=== PATIENT | female | born 1965 | race Caucasian/White ===

== ENCOUNTER 2017-05-28 06:54 | Day surgery (SDC) | payer MEDICAID ==
[2017-05-19 12:25] LABS: Basophils # (auto) 0.1 uL; Basophils % (auto) 0.8 % (0.0-2.0); Eosinophils # (auto) 0.2 uL; Eosinophils % (auto) 2.2 % (0.0-7.0); Hematocrit 44.5 % (36.0-46.0); Hemoglobin 15.1 g/dL (12.2-16.2); Lymphocytes # (auto) 2.8 uL; Lymphocytes % (auto) 27.3 % (10.0-50.0); Mean Corpuscular Hemoglobin 32.3 pg (28.0-32.0); Mean Corpuscular Hgb Conc. 33.8 g/dL (32.0-36.0); Mean Corpuscular Volume 95.4 fL (80.0-100.0); Monocytes # (auto) 0.6 uL; Monocytes % (auto) 6.2 % (0.0-12.0); Neutrophils # (auto) 6.6 uL; Neutrophils % (auto) 63.5 % (37.0-80.0); Nucleated Red Blood Cells % 0.1 %; Platelet Count (auto) 409 10^3/uL (140-450); Red Blood Cells 4.67 10^6/uL (4.0-5.20); Red Cell Distribution Width 13.1 % (11.8-14.3); White Blood Cell 10.4 10^3/uL (4.4-10.8)
[2017-05-19 12:41] LABS: Urine Bacteria NONE SEEN /hpf (None Seen); Urine Blood Negative /uL (Negative); Urine Mucus FEW (None Seen); Urine Specific Gravity 1.006 (1.001-1.035); Urine WBC 1 /hpf (0 - 5)
[2017-05-19 12:47] LABS: INR 0.88 (0.9-1.15); Prothrombin Time 9.6 sec (9.37-12.3)
[2017-05-19 14:17] LABS: Albumin 4.3 g/dL (3.4-5.0); BUN/Creatinine Ratio 14.5; Bilirubin, Total 0.3 mg/dL (0.2-1.0); Calcium 9.9 mg/dL (8.5-10.1); Potassium 4.1 mmol/L (3.5-5.1); Total Protein 8.2 g/dL (6.4-8.2)
[~2017-05-28] VITALS: Ht 162.6 cm; Wt 59.0 kg
[~2017-05-28 06:54] MED LIST: ALBUAER3 IN; BECL40AE10 IN; CYCL1TAB18 PO; GABA100C PO; HYDR-531 PO; TRIA37.561 PO; VEN75XRT PO
[2017-05-28] MEDS ORDERED: ceFAZolin 1GM/50ML 50 ML IV ONE (08:49)
[2017-05-28] MEDS ORDERED: fentaNYL CITRATE 100 MCG/2 ML VL ONE (10:16)
[2017-05-28] MEDS ORDERED: MIDAZOLAM HCL 1MG/1ML-2 ML VIAL ONE (10:17)
[2017-05-28] MEDS ORDERED: PROPOFOL 10 MG/ML 20 ML IV ONE (10:17)
[2017-05-28] MEDS ORDERED: ONDANSETRON HCL 4 MG/2 ML VIAL IV ONE (11:00)
[2017-05-28] MEDS ORDERED: ePHEDrine SULFATE 50 MG/ML AMP IV PRN (11:00)
[2017-05-28] MEDS ORDERED: fentaNYL CITRATE 100 MCG/2 ML VL IV ONE (11:00)
[2017-05-28] MEDS ORDERED: hydrALAZINE HCL 20 MG/ML VL IV PRN (11:00)
[2017-05-28 11:25] VITALS: BP 127/77
== END 2017-05-28 11:35 | disposition home or self-care (01) ==
LOC: SUR 06:54
PROVIDERS: ATTEND Podiatrist Foot & Ankle Surgery
DX: M20.12 Hallux valgus (acquired), left foot (principal); M21.612 Bunion of left foot; E66.9 Obesity, unspecified; J45.909 Unspecified asthma, uncomplicated; Z90.49 Acquired absence of other specified parts of digestive tract; K21.9 Gastro-esophageal reflux disease without esophagitis; I10 Essential (primary) hypertension; E03.9 Hypothyroidism, unspecified; F41.9 Anxiety disorder, unspecified; F32.9 Major depressive disorder, single episode, unspecified
CPT/HCPCS: 28296; C1713; J3010; 36415; 73620; 80053; 81001; 85025; 85610; 85730; C1769; J0690; J2250; J2704

== ENCOUNTER 2017-10-29 08:08 | Day surgery (SDC) | payer MEDICAID ==
[2017-10-24 12:20] LABS: Basophils # (auto) 0.1 uL; Basophils % (auto) 0.7 % (0.0-2.0); Eosinophils # (auto) 0.3 uL; Eosinophils % (auto) 2.8 % (0.0-7.0); Hematocrit 45.8 % (36.0-46.0); Hemoglobin 15.8 g/dL (12.2-16.2); Lymphocytes # (auto) 2.4 uL; Lymphocytes % (auto) 21.4 % (10.0-50.0); Mean Corpuscular Hemoglobin 33.9 pg (28.0-32.0); Mean Corpuscular Hgb Conc. 34.6 g/dL (32.0-36.0); Monocytes # (auto) 0.6 uL; Monocytes % (auto) 5.8 % (0.0-12.0); Neutrophils # (auto) 7.7 uL; Neutrophils % (auto) 69.3 % (37.0-80.0); Nucleated Red Blood Cells % 0.1 %; Platelet Count (auto) 286 10^3/uL (140-450); Red Blood Cells 4.67 10^6/uL (4.0-5.20); White Blood Cell 11.2 10^3/uL (4.4-10.8)
[2017-10-24 12:25] LABS: Urine Bacteria NONE SEEN /hpf (None Seen); Urine Blood Negative /uL (Negative); Urine Mucus FEW (None Seen); Urine Specific Gravity 1.004 (1.001-1.035); Urine WBC 3 /hpf (0 - 5)
[2017-10-24 12:36] LABS: INR 0.88 (0.9-1.15); Partial Thromboplastin Time 29.2 sec (23.78-33.04); Prothrombin Time 9.5 sec (9.27-12.13)
[2017-10-24 12:41] LABS: Albumin 3.6 g/dL (3.4-5.0); Potassium 3.5 mmol/L (3.5-5.1)
[2017-10-24 12:43] LABS: BUN/Creatinine Ratio 12.8
[2017-10-24 12:46] LABS: Bilirubin, Total 0.2 mg/dL (0.2-1.0); Total Protein 7.2 g/dL (6.4-8.2)
[~2017-10-29] VITALS: Ht 162.6 cm; Wt 54.4 kg
[~2017-10-29 08:08] MED LIST changes: -GABA100C PO
[2017-10-29] MEDS ORDERED: ceFAZolin 1GM/50ML 50 ML IV ONE (08:20)
[2017-10-29] MEDS ORDERED: MIDAZOLAM HCL 1MG/1ML-2 ML VIAL ONE (09:00)
[2017-10-29] MEDS ORDERED: LIDOCAINE 1% (LOCAL ANESTH.) PF 5ml SDV ONE (09:01)
[2017-10-29] MEDS ORDERED: PROPOFOL 10 MG/ML 20 ML IV ONE ×2 (09:01)
[2017-10-29] MEDS ORDERED: BUPIVACAINE 0.75% INJ 10ML MPV SDV IJ ONE (09:34)
[2017-10-29] MEDS ORDERED: fentaNYL CITRATE 100 MCG/2 ML VL ONE (09:44)
[2017-10-29] MEDS ORDERED: KETAMINE HCL 1 ML ONE (09:46)
[2017-10-29] MEDS ORDERED: GLYCOPYRROLATE 0.2 MG/ML 1ML VIAL ONE (09:47)
[2017-10-29] MEDS ORDERED: diphenhdrAMINE HCL 50 MG/1 ML VL ONE (09:47)
[2017-10-29] MEDS ORDERED: MORPHINE SULFATE 4 MG/ML SYR/VIAL IV PRN (10:00)
[2017-10-29] MEDS ORDERED: ONDANSETRON HCL 4 MG/2 ML VIAL IV ONE (10:00)
[2017-10-29] MEDS ORDERED: NALOXONE HCL 0.4 MG/ML VIAL IV PRN (10:00)
[2017-10-29 10:38] VITALS: BP 127/79
== END 2017-10-29 10:44 | disposition home or self-care (01) ==
LOC: SUR 08:08
PROVIDERS: ATTEND Podiatrist Foot & Ankle Surgery
DX: T84.84XA Pain due to internal orthopedic prosthetic devices, implants and grafts, initial encounter (principal); L90.5 Scar conditions and fibrosis of skin; I10 Essential (primary) hypertension; E04.1 Nontoxic single thyroid nodule; K21.9 Gastro-esophageal reflux disease without esophagitis; M19.90 Unspecified osteoarthritis, unspecified site; F32.9 Major depressive disorder, single episode, unspecified; J44.9 Chronic obstructive pulmonary disease, unspecified; Z79.1 Long term (current) use of non-steroidal anti-inflammatories (NSAID); Z79.899 Other long term (current) drug therapy; Z90.49 Acquired absence of other specified parts of digestive tract; Z98.890 Other specified postprocedural states; Z87.891 Personal history of nicotine dependence; Y83.8 Other surgical procedures as the cause of abnormal reaction of the patient, or of later complication, without mention of misadventure at the time of the procedure; Y92.89 Other specified places as the place of occurrence of the external cause
CPT/HCPCS: 14040; 20680; J1200; J3010; J7030; 36415; 80053; 81001; 84702; 85025; 85610; 85730; J0690; J2250; J2704; J3490